=== PATIENT | male | born 1965 | race Hispanic/Latino ===

== ENCOUNTER 2017-09-17 23:56 | Inpatient (IN) | payer SELFPAY ==
[2017-09-18] MEDS ORDERED: ASPIRIN PO ONE (00:15)
[2017-09-18] MEDS ORDERED: NITRO-BID 2% TP ONE (00:30)
--- NOTE | 2017-09-18 00:31 | Emergency Department Report ---
ED Chest Pain HPI - General Chief Complaint: Chest Pain Stated Complaint: CHEST PAIN Time Seen by Provider: 09/18/17 00:28 Source: patient Mode of arrival: Ambulatory Limitations: No Limitations - History of Present Illness MD Complaint: chest pain -: This evening Onset: during rest Pain Location: substernal, left chest Pain Radiation: LUE, neck, jaw/teeth Severity scale (0 -10): 9 Quality: heaviness, pressure Consistency: constant Improves With: nitroglycerin Worsens With: nothing re: diaphoresis. denies: nausea, vomting, dyspnea Other Symptoms: denies: cough Treatments Prior to Arrival: aspirin, nitroglycerin Aspirin use within the Past 7 Days: (1) Yes - Related Data On Oral Contraceptives: No Home Medications Medication Instructions Recorded Confirmed Last Taken Aspirin 325 mg PO DAILY 09/18/17 09/18/17 09/17/17 21:35 975mg Nitroglycerin 0.4 mg SL DAILY PRN 09/18/17 09/18/17 09/17/17 21:30 0.4 MG Nitroglycerin [Nitroglycerin Patch] 1 each TD DAILY 09/18/17 09/18/17 09/17/17 Allergies Allergy/AdvReac Type Severity Reaction Status Date / Time No Known Allergies Allergy Verified 09/18/17 00:14 Heart Score - HEART Score History: Highly suspicious EKG: Significant ST-depression Age: 45-65 Risk factors: > 3 risk factors or hx of atherosclerotic disease Troponin: 1-3x normal limit HEART Score: 8 - Critical Actions Critical Actions: >7 pts:50-65% risk of adverse cardiac event. Early invasive measures ED Review of Systems ROS: Stated complaint: CHEST PAIN Other details as noted in HPI Comment: All other systems reviewed and negative Constitutional: denies: chills, fever Eyes: denies: eye pain, vision change ENT: denies: ear pain, dental pain Respiratory: denies: cough, shortness of breath Cardiovascular: chest pain. denies: palpitations Endocrine: no symptoms reported Gastrointestinal: denies: abdominal pain, nausea, vomiting, diarrhea Genitourinary: denies: urgency, dysuria, frequency Musculoskeletal: denies: back pain, joint swelling Skin: denies: rash, change in color Neurological: denies: headache, weakness, numbness, paresthesias Psychiatric: denies: anxiety, depression Hematological/Lymphatic: denies: easy bleeding, easy bruising ED Past Medical Hx - Past Medical History Hx Heart Attack/AMI: Yes Additional medical history: 3 stints in 2013 - Surgical History Additional Surgical History: stint placement - Social History Smoking Status: Never Smoker Substance Use Type: None - Medications Home Medications: Home Medications Medication Instructions Recorded Confirmed Last Taken Type Aspirin 325 mg PO DAILY 09/18/17 09/18/17 09/17/17 21:35 History 975mg Nitroglycerin 0.4 mg SL DAILY PRN 09/18/17 09/18/17 09/17/17 21:30 History 0.4 MG Nitroglycerin [Nitroglycerin Patch] 1 each TD DAILY 09/18/17 09/18/17 09/17/17 History ED Physical Exam - General Limitations: No Limitations General appearance: alert, in distress - Head Head exam: Present: atraumatic, normocephalic, normal inspection - Eye Eye exam: Present: normal appearance, PERRL, EOMI Pupils: Present: normal accommodation - ENT ENT exam: Present: normal exam, normal orophraynx, mucous membranes moist - Neck Neck exam: Present: normal inspection. Absent: tenderness, full ROM - Respiratory Respiratory exam: Present: normal lung sounds bilaterally. Absent: respiratory distress, wheezes, rhonchi - Cardiovascular Cardiovascular Exam: Present: regular rate, normal rhythm, normal heart sounds - GI/Abdominal GI/Abdominal exam: Present: soft, distended, normal bowel sounds. Absent: tenderness, guarding, rebound - Extremities Exam Extremities exam: Present: normal inspection, full ROM, normal capillary refill - Back Exam Back exam: Present: normal inspection, full ROM. Absent: tenderness - Neurological Exam Neurological exam: Present: alert, oriented X3, CN II-XII intact - Psychiatric Psychiatric exam: Present: normal affect, normal mood - Skin Skin exam: Present: warm, dry, intact, normal color. Absent: rash ED Course Vital Signs 09/18/17 09/18/17 09/18/17 00:11 00:45 00:49 Temperature 97.7 F Pulse Rate 80 82 82 Respiratory 20 Rate Blood Pressure 161/99 150/96 O2 Sat by Pulse 97 98 Oximetry - Reevaluation(s) Reevaluation #1: 09/18/17 03:14 I consulted the warehouse production worker director environmental Dr. William. He recommended starting the patient on heparin drip and admitting the patient to the hospitalist. Patient care was discussed with the hospitalist on-call for Dr. Charlene Rowell. She will admit the patient for further evaluation and management. SINA score - Sina Score Age > 65: (0) No Aspirin use within the Past 7 Days: (1) Yes 3 or more CAD Risk Factors: (1) Yes 2 or more Angina events in past 24 hrs: (1) Yes Known CAD with more than 50% Stenosis: (1) Yes Elevated Cardiac Markers: (1) Yes ST Deviation Greater than 0.5mm: (0) No SINA Score: 5 ED Medical Decision Making - Lab Data Result diagrams: 09/18/17 03:04 09/18/17 00:21 - EKG Data -: EKG Interpreted by Me EKG shows normal: sinus rhythm Rate: normal (85) - EKG Data When compared to previous EKG there are: previous EKG unavailable Interpretation: nonspecific ST-T wave elian, other (Q waves in the inferior leads. No STEMI.) Critical Care Time: Yes Critical care time in (mins) excluding proc time.: 50 Critical care attestation.: If time is entered above; I have spent that time in minutes in the direct care of this critically ill patient, excluding procedure time. ED Disposition Clinical Impression: NSTEMI (non-ST elevated myocardial infarction), Chest pain due to coronary artery disease Disposition: OP ADMIT IP TO THIS HOSP Is pt being admited?: Yes Does the pt Need Aspirin: Yes Condition: Stable Instructions: Chest Pain (ED) Referrals: PRIMARY CARE, [Primary Care Provider] - 3-5 Days Time of Disposition: 03:10
[2017-09-18 00:35] LABS: Basophils # (Auto) 0.1 K/mm3 (0.0-0.1); Basophils % (Auto) 0.5 % (0.0-1.8); Eosinophils # (Auto) 0.4 K/mm3 (0.0-0.4); Eosinophils % (Auto) 3.2 % (0.0-4.3); Hematocrit 45.3 % (35.5-45.6); Hemoglobin 14.8 gm/dl (11.8-15.2); Lymphocytes % (Auto) 31.1 % (13.4-35.0); Mean Corpuscular HGB Conc 33 % (32-34); Mean Corpuscular Hemoglobin 29 pg (28-32); Mean Corpuscular Volume 88 fl (84-94); Monocytes # (Auto) 1.2 K/mm3 (0.0-0.8); Monocytes % (Auto) 9.3 % (0.0-7.3); Platelet Count 300 K/mm3 (140-440); Red Blood Count 5.18 M/mm3 (3.65-5.03)
[2017-09-18 00:48] LABS: BUN/Creatinine Ratio 14; Blood Urea Nitrogen 17 mg/dL (9-20); Calcium 9.5 mg/dL (8.4-10.2); Hemolysis Index 7
[2017-09-18 01:18] LABS: HDL Cholesterol 30 mg/dL (40-59); LDL Cholesterol,Direct 208 mg/dL (50-130)
[2017-09-18 01:29] LABS: INR 0.97 (0.87-1.13)
[2017-09-18 01:38] LABS: Alanine Aminotransferase 21 units/L (7-56); Albumin 4.3 g/dL (3.9-5)
[2017-09-18 01:45] LABS: Partial Thromboplastin Time 29.5 Sec. (24.2-36.6)
[2017-09-18 01:48] LABS: Bilirubin,Direct < 0.2 mg/dL (0-0.2)
[2017-09-18 03:32] LABS: Hematocrit 42.2 % (35.5-45.6); Hemoglobin 14.3 gm/dl (11.8-15.2)
[2017-09-18 03:41] LABS: INR 0.96 (0.87-1.13)
[2017-09-18 03:42] LABS: Partial Thromboplastin Time 28.9 Sec. (24.2-36.6)
[2017-09-18] MEDS: HEPARIN/ 0.45% NACL-25,000 UNIT/500 ML 25,000 UNIT/500 ML BAG IV SCH (04:03)
[2017-09-18] MEDS ORDERED: MORPHINE IV ONE ×2 (04:24→04:46)
[2017-09-18] MEDS ORDERED: ZOFRAN IV PRN (05:08)
[2017-09-18] MEDS ORDERED: SODIUM CHLORIDE FLUSH SYRINGE 10 ML IV PRN (05:08)
--- NOTE | 2017-09-18 05:11 | History and Physical Report ---
History of Present Illness Date of examination: 09/18/17 History of present illness: 52-year-old man with a history of CAD comes to the emergency room with complaints of chest pain that started tonight. Pain is in the left epigastric area which he describes as someone standing on his chest, constant, radiating to the left shoulder, jaw, neck,, intensity 7/10. He took 3 sublingual nitroglycerin at home without any relief, when he came to the emergency room he was given a nitroglycerin paste which resolve his pain. Complains of nausea, shortness of breath, no diaphoresis, palpitations. Review of systems Constitutional: no weight loss, chills Ears, eyes, nose, mouth and throat: no nasal congestion, no nasal discharge, no sinus pressure, no vision change, no red eye. Neck: No neck pain or rigidity. Cardiovascular: no palpitations Respiratory: No cough Gastrointestinal: no abdominal pain, hematochezia Genitourinary : no dysuria, frequency , no hematuria Musculoskeletal: no joint swelling or muscle ache Integumentary: no rash, no pruritis Neurological: no parathesias, no numbness, no focal weakness Endocrine: no cold or heat intolerance, no polyuria or polydipsia Hematologic/Lymphatic: no easy bruising, no easy bleeding, no gland swelling Allergic/Immunologic: no urticaria, no angioedema. PAST MEDICAL HISTORY: CAD PAST SURGICAL HISTORY: none SOCIAL HISTORY: Denies alcohol, tobacco, drugs FAMILY HISTORY: Hypertension Medications and Allergies Allergies Allergy/AdvReac Type Severity Reaction Status Date / Time No Known Allergies Allergy Verified 09/18/17 00:14 Home Medications Medication Instructions Recorded Confirmed Last Taken Type Aspirin 325 mg PO DAILY 09/18/17 09/18/17 09/17/17 21:35 History 975mg Nitroglycerin 0.4 mg SL DAILY PRN 09/18/17 09/18/17 09/17/17 21:30 History 0.4 MG Nitroglycerin [Nitroglycerin Patch] 1 each TD DAILY 09/18/17 09/18/17 09/17/17 History Active Meds: Active Medications Aspirin (Aspirin) 325 mg PO DAILY [facility] Heparin Sodium/Sodium Chloride (Heparin/ 0.45% Nacl-25,000 Unit/500 Ml) 25,000 unit in 500 mls @ 20 mls/hr IV TITRATE ROSITA; Protocol Last Admin: 09/18/17 04:03 Dose: 1,000 units/hr, 20 mls/hr Exam - Constitutional Vitals: Temp Pulse Resp BP Pulse Ox 97.7 F 82 20 150/96 98 09/18/17 00:11 09/18/17 00:49 09/18/17 00:45 09/18/17 00:49 09/18/17 00:45 Results - Labs CBC & Chem 7: 09/18/17 03:04 09/18/17 00:21 Labs: Abnormal lab results 09/18/17 09/18/17 09/18/17 Range/Units 00:21 00:21 03:04 WBC 12.7 H (4.5-11.0) K/mm3 RBC 5.18 H (3.65-5.03) M/mm3 Patrick % (Auto) 9.3 H (0.0-7.3) % Patrick # 1.2 H (0.0-0.8) K/mm3 Glucose 121 H (75-100) mg/dL Troponin T 0.038 H 0.137 H* D (0.00-0.029) ng/mL Triglycerides 358 H (2-149) mg/dL Cholesterol 279 H (50-199) mg/dL LDL Cholesterol Direct 208 H (50-130) mg/dL HDL Cholesterol 30 L (40-59) mg/dL - Imaging and Cardiology EKG: image reviewed Chest x-ray: image reviewed Assessment and Plan Assessment NSTMI CAD Plan Admit to medicine Check cardiac enzymes, consult cardiology Continue heparin drip, start aspirin, coreg, lisinopril Continue appropriate outpatient medications DVT prophylaxis
[2017-09-18] MEDS ORDERED: TYLENOL ONE (07:03)
[2017-09-18] MEDS: TYLENOL PO PRN ×2 (07:13→17:46)
[2017-09-18] MEDS: COREG PO SCH ×4 (10:34→22:00)
[2017-09-18] MEDS: ASPIRIN PO SCH (10:34)
[2017-09-18] MEDS: ZESTRIL PO SCH (10:35)
[2017-09-18] MEDS: MORPHINE IV PRN (10:36)
[2017-09-18] MEDS: SODIUM CHLORIDE FLUSH SYRINGE 10 ML IV SCH ×2 (10:37→22:50)
--- NOTE | 2017-09-18 11:53 | Progress Note ---
Assessment and Plan Assessment and plan: NSTEMI. Continue heparin drip, Coreg, aspirin and lisinopril. Cardiology consultation pending. Follow-up echocardiogram. Chest pain. As above. Coronary artery disease. Additional 32 minutes spent evaluating the patient after admission History Interval history: No new issues overnight. Hospitalist Physical - Constitutional Vitals: Temp Pulse Resp BP Pulse Ox 97.9 F 78 11 L 119/79 98 09/18/17 09:50 09/18/17 10:35 09/18/17 09:50 09/18/17 10:35 09/18/17 09:50 General appearance: Present: no acute distress, well-nourished - EENT Eyes: Present: PERRL, EOM intact ENT: hearing intact, clear oral mucosa, dentition normal - Neck Neck: Present: supple, normal ROM - Respiratory Respiratory effort: normal Respiratory: bilateral: CTA - Cardiovascular Rhythm: regular Heart Sounds: Present: S1 & S2. Absent: gallop, rub - Extremities Extremities: no ischemia, No edema, Full ROM - Abdominal General gastrointestinal: soft, non-tender, non-distended, normal bowel sounds - Integumentary Integumentary: Present: clear, warm, dry - Neurologic Neurologic: CNII-XII intact, moves all extremities Results - Labs CBC & Chem 7: 09/18/17 03:04 09/18/17 00:21 Labs: Laboratory Last Values WBC 12.7 K/mm3 (4.5-11.0) H 09/18/17 00:21 RBC 5.18 M/mm3 (3.65-5.03) H 09/18/17 00:21 Hgb 14.3 gm/dl (11.8-15.2) 09/18/17 03:04 Hct 42.2 % (35.5-45.6) 09/18/17 03:04 MCV 88 fl (84-94) 09/18/17 00:21 MCH 29 pg (28-32) 09/18/17 00:21 MCHC 33 % (32-34) 09/18/17 00:21 RDW 15.0 % (13.2-15.2) 09/18/17 00:21 Plt Count 268 K/mm3 (140-440) 09/18/17 03:04 Lymph % (Auto) 31.1 % (13.4-35.0) 09/18/17 00:21 [place] % (Auto) 9.3 % (0.0-7.3) H 09/18/17 00:21 Eos % (Auto) 3.2 % (0.0-4.3) 09/18/17 00:21 Baso % (Auto) 0.5 % (0.0-1.8) 09/18/17 00:21 Lymph # 4.0 K/mm3 (1.2-5.4) 09/18/17 00:21 [place] # 1.2 K/mm3 (0.0-0.8) H 09/18/17 00:21 Eos # 0.4 K/mm3 (0.0-0.4) 09/18/17 00:21 Baso # 0.1 K/mm3 (0.0-0.1) 09/18/17 00:21 Seg Neutrophils % 55.9 % (40.0-70.0) 09/18/17 00: Seg Neutrophils # 7.1 K/mm3 (1.8-7.7) 09/18/17 00:21 PT 13.3 Sec. (12.2-14.9) 09/18/17 03:04 INR 0.96 (0.87-1.13) 09/18/17 03:04 APTT 28.9 Sec. (24.2-36.6) 09/18/17 03:04 Heparin Anti-Xa Level < 0.10 U.I./ml (0.3-0.7) L 09/18/17 09:47 Sodium 139 mmol/L (137-145) 09/18/17 00:21 Potassium 4.3 mmol/L (3.6-5.0) 09/18/17 00:21 Chloride 101.2 mmol/L (98-107) 09/18/17 00:21 Carbon Dioxide 25 mmol/L (22-30) 09/18/17 00:21 Anion Gap 17 mmol/L 09/18/17 00:21 BUN 17 mg/dL (9-20) 09/18/17 00:21 Creatinine 1.2 mg/dL (0.8-1.5) 09/18/17 00:21 Estimated GFR > 60 ml/min 09/18/17 00:21 BUN/Creatinine Ratio 14 % 09/18/17 00:21 Glucose 121 mg/dL (75-100) H 09/18/17 00:21 Calcium 9.5 mg/dL (8.4-10.2) 09/18/17 00:21 Total Bilirubin 0.20 mg/dL (0.1-1.2) 09/18/17 00:46 Direct Bilirubin < 0.2 mg/dL (0-0.2) 09/18/17 00:46 Indirect Bilirubin 0.0 mg/dL 09/18/17 00:46 AST 17 units/L (5-40) 09/18/17 00:46 ALT 21 units/L (7-56) 09/18/17 00:46 Alkaline Phosphatase 95 units/L (35-129) 09/18/17 00:46 Total Creatine Kinase 59 units/L (55-170) 09/18/17 00:46 Troponin T 0.195 ng/mL (0.00-0.029) H* D 09/18/17 06:35 NT-Pro-B Natriuret Pep 156.1 pg/mL (0-900) 09/18/17 00:46 Total Protein 7.7 g/dL (6.3-8.2) 09/18/17 00:46 Albumin 4.3 g/dL (3.9-5) 09/18/17 00:46 Albumin/Globulin Ratio 1.3 % 09/18/17 00:46 Triglycerides 358 mg/dL (2-149) H 09/18/17 00:21 Cholesterol 279 mg/dL (50-199) H 09/18/17 00:21 LDL Cholesterol Direct 208 mg/dL (50-130) H 09/18/17 00:21 HDL Cholesterol 30 mg/dL (40-59) L 09/18/17 00:21 Cholesterol/HDL Ratio 9.30 % 09/18/17 00:21
--- NOTE | 2017-09-18 15:30 | Consultation ---
History of Present Illness Consult date: 09/18/17 Consult reason: chest pain History of present illness: Patient's a 52-year-old man with a history of coronary artery disease, prior coronary stenting more than 5 years ago. Since then, he has not maintained consistent cardiac follow-up. He states that due to lack of insurance he has been noncompliant with medical therapy and cardiac patient follow-up. He presents to the hospital at this time with chest pain which he describes as substernal chest and neck pain, radiating to his left arm. He obtained some relief with nitroglycerin paste administered in the emergency room. EKG was normal sinus rhythm, left axis deviation, old inferior myocardial infarction and incomplete right bundle branch block. Nose no acute ischemia or infarction on EKG. There was a mild isolated rising troponin of 0.13. While contemplating possible noninvasive cardiac stress test assessment, the patient reported that he had mild recurrence of his symptoms, prompting a recommendation for consideration of invasive cardiac evaluation. Currently on bedrest, he looks and feels better, no further chest pain. Past History Past Medical History: CAD Past Surgical History: PTCA Medications and Allergies Allergies Allergy/AdvReac Type Severity Reaction Status Date / Time No Known Allergies Allergy Verified 09/18/17 00:14 Home Medications Medication Instructions Recorded Confirmed Last Taken Type Aspirin 325 mg PO DAILY 09/18/17 09/18/17 09/17/17 21:35 History 975mg Nitroglycerin 0.4 mg SL DAILY PRN 09/18/17 09/18/17 09/17/17 21:30 History 0.4 MG Nitroglycerin [Nitroglycerin Patch] 1 each TD DAILY 09/18/17 09/18/17 09/17/17 History Active Meds: Active Medications Acetaminophen (Tylenol) 650 mg PO Q4H PRN PRN Reason: Pain MILD(1-3)/Fever >100.5/MURILLO Last Admin: 09/18/17 07:13 Dose: 650 mg Aspirin (Aspirin) 325 mg PO DAILY [facility] Last Admin: 09/18/17 10:34 Dose: 325 mg Carvedilol (Coreg) 3.125 mg PO BID [facility] Last Admin: 09/18/17 10:34 Dose: 3.125 mg Heparin Sodium/Sodium Chloride (Heparin/ 0.45% Nacl-25,000 Unit/500 Ml) 25,000 unit in 500 mls @ 20 mls/hr IV TITRATE ROSITA; Protocol Last Titration: 09/18/17 10:43 Dose: 1,250 units/hr, 25 mls/hr Lisinopril (Zestril) 2.5 mg PO QDAY ROSITA Last Admin: 09/18/17 10:35 Dose: 2.5 mg Morphine Sulfate (Morphine) 2 mg IV Q4H PRN PRN Reason: Pain, Moderate (4-6) Last Admin: 09/18/17 10:36 Dose: 2 mg Ondansetron HCl (Zofran) 4 mg IV Q8H PRN PRN Reason: Nausea And Vomiting Last Admin: 09/18/17 10:33 Dose: 4 mg Sodium Chloride (Sodium Chloride Flush Syringe 10 Ml) 10 ml IV BID ROSITA Last Admin: 09/18/17 10:37 Dose: 10 ml Sodium Chloride (Sodium Chloride Flush Syringe 10 Ml) 10 ml IV PRN PRN PRN Reason: LINE FLUSH Review of Systems Cardiovascular: chest pain, shortness of breath, no orthopnea, no palpitations, no rapid/irregular heart beat, no edema, no syncope, no lightheadedness Physical Examination Vital Signs Temp Pulse BP Pulse Ox 97.7 F 80 161/99 97 09/18/17 00:11 09/18/17 00:11 09/18/17 00:11 09/18/17 00:11 General appearance: no acute distress, obese HEENT: Positive: PERRL Neck: Positive: neck supple Cardiac: Positive: Reg Rate and Rhythm Lungs: Positive: Decreased Breath Sounds Neuro: Positive: Grossly Intact Abdomen: Positive: Soft Male genitourinary: Positive: deferred Skin: Positive: Clear Extremities: Absent: edema Results 09/18/17 03:04 09/18/17 00:21 Cardiac Enzymes 09/18/17 Range/Units 00:46 AST 17 (5-40) units/L Coagulation 09/18/17 09/18/17 Range/Units 00:46 03:04 PT 13.4 13.3 (12.2-14.9) Sec. INR 0.97 0.96 (0.87-1.13) APTT 29.5 28.9 (24.2-36.6) Sec. Lipids 09/18/17 Range/Units 00:21 Triglycerides 358 H (2-149) mg/dL Cholesterol 279 H (50-199) mg/dL HDL Cholesterol 30 L (40-59) mg/dL Cholesterol/HDL Ratio 9.30 % CBC 09/18/17 09/18/17 Range/Units 00:21 03:04 WBC 12.7 H (4.5-11.0) K/mm3 RBC 5.18 H (3.65-5.03) M/mm3 Hgb 14.8 14.3 (11.8-15.2) gm/dl Hct 45.3 42.2 (35.5-45.6) % Plt Count 300 268 (140-440) K/mm3 Lymph # 4.0 (1.2-5.4) K/mm3 [place] # 1.2 H (0.0-0.8) K/mm3 Eos # 0.4 (0.0-0.4) K/mm3 Baso # 0.1 (0.0-0.1) K/mm3 Comprehensive Metabolic Panel 09/18/17 09/18/17 Range/Units 00:21 00:46 Sodium 139 (137-145) mmol/L Potassium 4.3 (3.6-5.0) mmol/L Chloride 101.2 (98-107) mmol/L Carbon Dioxide 25 (22-30) mmol/L BUN 17 (9-20) mg/dL Creatinine 1.2 (0.8-1.5) mg/dL Glucose 121 H (75-100) mg/dL Calcium 9.5 (8.4-10.2) mg/dL Direct Bilirubin < 0.2 (0-0.2) mg/dL Indirect Bilirubin 0.0 mg/dL AST 17 (5-40) units/L ALT 21 (7-56) units/L Alkaline Phosphatase 95 (35-129) units/L Total Protein 7.7 (6.3-8.2) g/dL Albumin 4.3 (3.9-5) g/dL EKG interpretations - Telemetry EKG Rhythm: Sinus Rhythm Assessment and Plan - Patient Problems (1) Unstable angina Current Visit: Yes Status: Acute Plan to address problem: Patient with a history of coronary artery disease and previous coronary stenting , with very poor outpatient follow-up, presents with recurrent chest pain. His symptoms are suspicious for unstable angina. We will proceed with diagnostic cardiac catheterization in the morning. Risks and benefits have been discussed with patient and his and he consents to proceed.
[2017-09-19] MEDS: HEPARIN/ 0.45% NACL-25,000 UNIT/500 ML 25,000 UNIT/500 ML BAG IV SCH (01:25)
[2017-09-19 05:52] LABS: Basophils # (Auto) 0.1 K/mm3 (0.0-0.1); Basophils % (Auto) 0.6 % (0.0-1.8); Eosinophils # (Auto) 0.3 K/mm3 (0.0-0.4); Eosinophils % (Auto) 3.4 % (0.0-4.3); Hematocrit 41.8 % (35.5-45.6); Hemoglobin 13.8 gm/dl (11.8-15.2); Lymphocytes % (Auto) 29.7 % (13.4-35.0); Mean Corpuscular HGB Conc 33 % (32-34); Mean Corpuscular Hemoglobin 29 pg (28-32); Mean Corpuscular Volume 87 fl (84-94); Monocytes # (Auto) 0.8 K/mm3 (0.0-0.8); Monocytes % (Auto) 7.7 % (0.0-7.3); Platelet Count 256 K/mm3 (140-440); Red Blood Count 4.79 M/mm3 (3.65-5.03); Red Cell Distribution Width 15.1 % (13.2-15.2)
[2017-09-19 05:56] LABS: INR 0.98 (0.87-1.13)
[2017-09-19 05:57] LABS: Partial Thromboplastin Time 44.5 Sec. (24.2-36.6)
[2017-09-19 06:01] LABS: BUN/Creatinine Ratio 12; Blood Urea Nitrogen 13 mg/dL (9-20); Hemolysis Index 11
[2017-09-19] MEDS ORDERED: ASPIRIN ONE (08:09)
[2017-09-19] MEDS: ASPIRIN PO SCH ×2 (08:12→13:32)
[2017-09-19] MEDS: SUBLIMAZE ONE ×2 (09:00→09:33)
[2017-09-19] MEDS: CALAN ONE ×2 (09:00→09:35)
[2017-09-19] MEDS ORDERED: NACL 0.9% 500 ML 500 ML IV SCH (09:00)
[2017-09-19] MEDS: VERSED ONE ×2 (09:00→09:33)
[2017-09-19] MEDS: XYLOCAINE 2% INFILTRATI ONE ×2 (09:00→09:35)
[2017-09-19] MEDS: HEPARIN 10,000 UNITS/10 ML ONE ×2 (09:02→09:35)
[2017-09-19] MEDS: HEPARIN/NS 5000 UNIT/500ML(CATH LAB) 1,000 ML IR ONE ×2 (09:03→09:30)
[2017-09-19] MEDS: NITROGLYCERIN SYRINGE 3 ML ONE ×2 (09:04→09:35)
[2017-09-19] MEDS: NACL 0.9% 500 ML 500 ML ONE ×2 (09:04→09:30)
--- NOTE | 2017-09-19 10:22 | Progress Note ---
Assessment and Plan NSTEMI Coronary artery disease Severe triple vessel disease 70% proximal Cx, 100% OM3 and 100% PLOM, distal vessels filling via left to left and right to left collaterals 90% mid LAD, 80% distal LAD, 80% D1 and 90% D2 60% distal RCA bifurcation and 90% PDA lesion LVEF 40% Ischemic cardiomyopathy Hyperlipidemia LDL 208 and TG 358 Type II DM Recommendations: CABG Recommend transfer to tertiary care facility Family undecided which facility they want to go to or if they want to pursue CABG Resume IV heparin at 2 pm today Subjective Date of service: 09/19/17 Principal diagnosis: NSTEMI Interval history: Patient underwent a cardiac cath this morning without complications Objective Vital Signs Temp Pulse Resp BP BP Pulse Ox 09/19/17 03:56 97.7 F 80 18 125/81 90 09/18/17 23:54 97.8 F 85 18 139/95 95 09/18/17 23:00 80 09/18/17 20:44 97.8 F 78 15 115/78 93 09/18/17 17:40 83 134/96 09/18/17 12:25 97.8 F 80 20 135/80 09/18/17 10:35 78 119/79 09/18/17 10:34 78 119/79 - Physical Examination HEENT: Positive: PERRL Neck: Positive: neck supple Cardiac: Positive: Reg Rate and Rhythm Lungs: Positive: Normal Exam Neuro: Positive: Grossly Intact Abdomen: Positive: Soft Skin: Positive: Clear Extremities: Absent: edema - Labs and Meds Coagulation 09/19/17 Range/Units 04:43 PT 13.5 (12.2-14.9) Sec. INR 0.98 (0.87-1.13) APTT 44.5 H (24.2-36.6) Sec. CBC 09/19/17 Range/Units 04:43 WBC 10.3 (4.5-11.0) K/mm3 RBC 4.79 (3.65-5.03) M/mm3 Hgb 13.8 (11.8-15.2) gm/dl Hct 41.8 (35.5-45.6) % Plt Count 256 (140-440) K/mm3 Lymph # 3.0 (1.2-5.4) K/mm3 [place] # 0.8 (0.0-0.8) K/mm3 Eos # 0.3 (0.0-0.4) K/mm3 Baso # 0.1 (0.0-0.1) K/mm3 Comprehensive Metabolic Panel 09/19/17 Range/Units 04:43 Sodium 136 L (137-145) mmol/L Potassium 4.6 (3.6-5.0) mmol/L Chloride 98.9 (98-107) mmol/L Carbon Dioxide 28 (22-30) mmol/L BUN 13 (9-20) mg/dL Creatinine 1.1 (0.8-1.5) mg/dL Glucose 105 H (75-100) mg/dL Calcium 9.0 (8.4-10.2) mg/dL - Imaging and Cardiology EKG: image reviewed
--- NOTE | 2017-09-19 11:02 | Progress Note ---
Assessment and Plan Assessment and plan: NSTEMI. Continue heparin drip, Coreg, aspirin and lisinopril. Cardiology following. Patient underwent cardiac catheterization which revealed severe triple vessel disease. 70% proximal Cx, 100% OM3 and 100% PLOM, distal vessels filling via left to left and right to left collaterals, 90% mid LAD, 80% distal LAD, 80% D1 and 90% D2, 60% distal RCA bifurcation and 90% PDA lesion, LVEF 40% . Cardiology recommends transfer to tertiary facility. Await family decision. Ischemic cardiomyopathy. Coronary artery disease. As above Hyperlipidemia. Continue Lipitor 40 mg at bedtime. Diabetes mellitus type 2. Continue accuchecks and sliding scale insulin. History Interval history: No new issues overnight. Hospitalist Physical - Constitutional Vitals: Temp Pulse Resp BP Pulse Ox 97.7 F 80 18 125/81 90 09/19/17 03:56 09/19/17 03:56 09/19/17 03:56 09/19/17 03:56 09/19/17 03:56 General appearance: Present: no acute distress, obese - EENT Eyes: Present: PERRL, EOM intact ENT: hearing intact, clear oral mucosa, dentition normal - Neck Neck: Present: supple, normal ROM - Respiratory Respiratory effort: normal Respiratory: bilateral: CTA - Cardiovascular Rhythm: regular Heart Sounds: Present: S1 & S2. Absent: gallop, rub - Extremities Extremities: no ischemia, No edema, Full ROM - Abdominal General gastrointestinal: soft, non-tender, non-distended, normal bowel sounds - Integumentary Integumentary: Present: clear, warm, dry - Neurologic Neurologic: CNII-XII intact, moves all extremities Results - Labs CBC & Chem 7: 09/19/17 04:43 09/19/17 04:43 Labs: Laboratory Last Values WBC 10.3 K/mm3 (4.5-11.0) 09/19/17 04:43 RBC 4.79 M/mm3 (3.65-5.03) 09/19/17 04:43 Hgb 13.8 gm/dl (11.8-15.2) 09/19/17 04:43 Hct 41.8 % (35.5-45.6) 09/19/17 04:43 MCV 87 fl (84-94) 09/19/17 04:43 MCH 29 pg (28-32) 09/19/17 04:43 MCHC 33 % (32-34) 09/19/17 04:43 RDW 15.1 % (13.2-15.2) 09/19/17 04:43 Plt Count 256 K/mm3 (140-440) 09/19/17 04:43 Lymph % (Auto) 29.7 % (13.4-35.0) 09/19/17 04:43 [place] % (Auto) 7.7 % (0.0-7.3) H 09/19/17 04:43 Eos % (Auto) 3.4 % (0.0-4.3) 09/19/17 04:43 Baso % (Auto) 0.6 % (0.0-1.8) 09/19/17 04:43 Lymph # 3.0 K/mm3 (1.2-5.4) 09/19/17 04:43 [place] # 0.8 K/mm3 (0.0-0.8) 09/19/17 04:43 Eos # 0.3 K/mm3 (0.0-0.4) 09/19/17 04:43 Baso # 0.1 K/mm3 (0.0-0.1) 09/19/17 04:43 Seg Neutrophils % 58.6 % (40.0-70.0) 09/19/17 04:43 Seg Neutrophils # 6.0 K/mm3 (1.8-7.7) 09/19/17 04:43 PT 13.5 Sec. (12.2-14.9) 09/19/17 04:43 INR 0.98 (0.87-1.13) 09/19/17 04:43 APTT 44.5 Sec. (24.2-36.6) H 09/19/17 04:43 Heparin Anti-Xa Level 0.18 U.I./ml (0.3-0.7) L 09/18/17 16:55 Sodium 136 mmol/L (137-145) L 09/19/17 04:43 Potassium 4.6 mmol/L (3.6-5.0) 09/19/17 04:43 Chloride 98.9 mmol/L (98-107) 09/19/17 04:43 Carbon Dioxide 28 mmol/L (22-30) 09/19/17 04:43 Anion Gap 14 mmol/L 09/19/17 04:43 BUN 13 mg/dL (9-20) 09/19/17 04:43 Creatinine 1.1 mg/dL (0.8-1.5) 09/19/17 04:43 Estimated GFR > 60 ml/min 09/19/17 04:43 BUN/Creatinine Ratio 12 % 09/19/17 04:43 Glucose 105 mg/dL (75-100) H 09/19/17 04:43 POC Glucose 95 (70-105) 09/19/17 06:37 Calcium 9.0 mg/dL (8.4-10.2) 09/19/17 04:43 Total Bilirubin 0.20 mg/dL (0.1-1.2) 09/18/17 00:46 Direct Bilirubin < 0.2 mg/dL (0-0.2) 09/18/17 00:46 Indirect Bilirubin 0.0 mg/dL 09/18/17 00:46 AST 17 units/L (5-40) 09/18/17 00:46 ALT 21 units/L (7-56) 09/18/17 00:46 Alkaline Phosphatase 95 units/L (35-129) 09/18/17 00:46 Total Creatine Kinase 59 units/L (55-170) 09/18/17 00:46 Troponin T 0.195 ng/mL (0.00-0.029) H* D 09/18/17 06:35 NT-Pro-B Natriuret Pep 156.1 pg/mL (0-900) 09/18/17 00:46 Total Protein 7.7 g/dL (6.3-8.2) 09/18/17 00:46 Albumin 4.3 g/dL (3.9-5) 09/18/17 00:46 Albumin/Globulin Ratio 1.3 % 09/18/17 00:46 Triglycerides 358 mg/dL (2-149) H 09/18/17 00:21 Cholesterol 279 mg/dL (50-199) H 09/18/17 00:21 LDL Cholesterol Direct 208 mg/dL (50-130) H 09/18/17 00:21 HDL Cholesterol 30 mg/dL (40-59) L 09/18/17 00:21 Cholesterol/HDL Ratio 9.30 % 09/18/17 00:21
[2017-09-19] MEDS: COREG PO SCH ×4 (13:33→22:29)
[2017-09-19] MEDS: SODIUM CHLORIDE FLUSH SYRINGE 10 ML IV SCH ×2 (13:33→22:31)
[2017-09-19] MEDS: ZESTRIL PO SCH ×2 (13:34→13:36)
[2017-09-19] MEDS ORDERED: AMBIEN PO ONE (22:00)
[2017-09-19] MEDS: NITRO-BID 2% TP SCH (22:31)
--- NOTE | 2017-09-19 22:32 | Cardiac Catherization Report ---
LEFT HEART CATHETERIZATION INDICATION FOR PROCEDURE: Non-ST elevation myocardial infarction. ORDERING PHYSICIAN: Dr. Christopher Guevara. PROCEDURE PERFORMED: 1. Selective left and right coronary angiography. 2. Left ventriculography. DESCRIPTION OF PROCEDURE: After obtaining written consent, the patient was draped using sterile technique. A 2% lidocaine was injected into the right wrist. A 5-St Helenian vascular sheath was inserted into the right radial artery after documenting appropriate radial and ulnar blood flow. A 5-St Helenian JL3.5 catheter was used to selectively engage the left coronary artery. A 5-St Helenian JR4 catheter was used to selectively engage the right coronary artery. A 5-St Helenian JR4 catheter was used to hand inject the left ventriculogram. No complications occurred during the procedure. SPECIMEN REMOVED: None. Hemostasis was achieved at the end of the procedure using manual pressure. ESTIMATED BLOOD LOSS: Minimal. SEDATION ADMINISTERED: 1 mg of IV Versed and 50 mcg of IV fentanyl. Physician patient [id number] sedation start time is 9:33 a.m. Physician patient sedation [id number] stop time is 9:44 a.m. Total sedation time was 11 minutes. FINDINGS: HEMODYNAMICS: Aortic pressure 136/98. LV systolic pressure 136 mmHg, LVEDP 28 mmHg. There was no significant gradient noted across left ventricular outflow tract. CARDIAC STRUCTURES: There is moderate global left ventricular hypokinesis with an ejection fraction estimated at 40%. CORONARY ANATOMY: 1. This is a right dominant circulation. 2. The left main has mild luminal irregularities. 3. The left anterior descending artery has a patent stent noted in the proximal segment. There is a 90% focal stenosis of the mid LAD at the takeoff of the second diagonal artery. This is followed by a tubular diffuse 80% stenosis in the mid to distal LAD. The distal LAD is severely diffusely diseased and small in caliber. The first diagonal artery has an 80% ostial stenosis and is moderate sized caliber vessel. The second diagonal artery has a mid segment, 90% focal stenosis and then a moderate sized caliber vessel. 4. The proximal left circumflex artery has a tubular 70% stenosis. 5. OM1 and OM2 are very small in caliber. 6. There is 100% occlusion of OM3 proximally. The distal vessel is noted filling late via left to left collaterals. 7. There is also a 100% occlusion of the posterolateral obtuse marginal with distal vessel also noted to be filling via left to left collaterals. 8. The AV groove vessel is very small and severely diffusely diseased. 9. The right coronary artery is dominant vessel. The right coronary artery has a diffuse 30% stenosis, 30% disease in the proximal, mid and distal segment. There is a hazy 60% stenosis at the bifurcation of the PDA and PLVB. There is 20% diffuse disease noted in the PLVB. There is a tubular 90% stenosis noted in the PDA. This is a moderate sized caliber vessel. IMPRESSION: 1. Severe 3-vessel disease. 2. Patent proximal LAD stent. 3. 90% focal mid LAD stenosis followed by 80% tubular mid to distal LAD stenosis with the distal vessel being severely diseased and small in caliber. 4. 80% ostial D1 and 90% mid D2. 5. 70% proximal circumflex. 6. 100% ostial and proximal OM3. 7. 100% ostial and proximal PLOM. 8. 90% mid PDA with evidence of right to left collaterals. 9. The left ventricular ejection fraction is estimated at 40% with moderate global left ventricular hypokinesis. 10. LVEDP measured at 28 mmHg. RECOMMENDATIONS: The patient is recommended for coronary artery bypass grafting, given the severity and diffuse nature of his coronary artery disease. Family, however, is very reluctant in having a coronary artery bypass grafting and is requesting second opinion from an metal bonding assembler. Family will be updating us on which hospital they would like to be transferred to for a second opinion. Until then, we will continue medical therapy and IV heparin infusion. JOB# [id number] STAN/JEFFRY
[2017-09-19] MEDS ORDERED: BENADRYL PO PRN (23:19)
[2017-09-19] MEDS ORDERED: BANOPHEN ANTI-ITCH TP PRN (23:19)
[2017-09-20] MEDS: HEPARIN/ 0.45% NACL-25,000 UNIT/500 ML 25,000 UNIT/500 ML BAG IV SCH (03:06)
[2017-09-20] MEDS: NITRO-BID 2% TP SCH ×3 (07:00→18:21)
[2017-09-20 08:26] LABS: Hematocrit 42.1 % (35.5-45.6); Hemoglobin 13.9 gm/dl (11.8-15.2)
[2017-09-20] MEDS: TYLENOL PO PRN (10:57)
[2017-09-20] MEDS: COREG PO SCH (10:57)
[2017-09-20] MEDS: ASPIRIN PO SCH (10:58)
[2017-09-20] MEDS: SODIUM CHLORIDE FLUSH SYRINGE 10 ML IV SCH (10:59)
[2017-09-20] MEDS: MORPHINE IV PRN (11:23)
--- NOTE | 2017-09-20 12:03 | Progress Note ---
Assessment and Plan Assessment and plan: NSTEMI. Continue heparin drip, Coreg, aspirin and lisinopril. Cardiology following. Patient underwent cardiac catheterization which revealed severe triple vessel disease. 70% proximal Cx, 100% OM3 and 100% PLOM, distal vessels filling via left to left and right to left collaterals, 90% mid LAD, 80% distal LAD, 80% D1 and 90% D2, 60% distal RCA bifurcation and 90% PDA lesion, LVEF 40% . Cardiology recommends transfer to tertiary facility. Family wants to be transferred to Dr. Walton at [facility]. Await accepting physician to arrange transfer. Ischemic cardiomyopathy. Continue IV heparin. Cardiology following. Coronary artery disease. As above Hyperlipidemia. Continue Lipitor 40 mg at bedtime. Diabetes mellitus type 2. Continue accuchecks and sliding scale insulin. History Interval history: No new issues overnight. Hospitalist Physical - Constitutional Vitals: Temp Pulse Resp BP Pulse Ox 97.2 F L 79 22 143/88 94 09/20/17 08:08 09/20/17 10:57 09/20/17 08:08 09/20/17 10:57 09/20/17 08:08 General appearance: Present: no acute distress, obese - EENT Eyes: Present: PERRL, EOM intact ENT: hearing intact, clear oral mucosa, dentition normal - Neck Neck: Present: supple, normal ROM - Respiratory Respiratory effort: normal Respiratory: bilateral: CTA - Cardiovascular Rhythm: regular Heart Sounds: Present: S1 & S2. Absent: gallop, rub - Extremities Extremities: no ischemia, No edema, Full ROM - Abdominal General gastrointestinal: soft, non-tender, non-distended, normal bowel sounds - Integumentary Integumentary: Present: clear, warm, dry - Neurologic Neurologic: CNII-XII intact, moves all extremities Results - Labs CBC & Chem 7: 09/20/17 07:16 09/19/17 04:43 Labs: Laboratory Last Values WBC 10.3 K/mm3 (4.5-11.0) 09/19/17 04:43 RBC 4.79 M/mm3 (3.65-5.03) 09/19/17 04:43 Hgb 13.9 gm/dl (11.8-15.2) 09/20/17 07:16 Hct 42.1 % (35.5-45.6) 09/20/17 07:16 MCV 87 fl (84-94) 09/19/17 04:43 MCH 29 pg (28-32) 09/19/17 04:43 MCHC 33 % (32-34) 09/19/17 04:43 RDW 15.1 % (13.2-15.2) 09/19/17 04:43 Plt Count 248 K/mm3 (140-440) 09/20/17 07:16 Lymph % (Auto) 29.7 % (13.4-35.0) 09/19/17 04:43 Archuleta % (Auto) 7.7 % (0.0-7.3) H 09/19/17 04:43 Eos % (Auto) 3.4 % (0.0-4.3) 09/19/17 04:43 Baso % (Auto) 0.6 % (0.0-1.8) 09/19/17 04:43 Lymph # 3.0 K/mm3 (1.2-5.4) 09/19/17 04:43 Archuleta # 0.8 K/mm3 (0.0-0.8) 09/19/17 04:43 Eos # 0.3 K/mm3 (0.0-0.4) 09/19/17 04:43 Baso # 0.1 K/mm3 (0.0-0.1) 09/19/17 04:43 Seg Neutrophils % 58.6 % (40.0-70.0) 09/19/17 04:43 Seg Neutrophils # 6.0 K/mm3 (1.8-7.7) 09/19/17 04:43 PT 13.5 Sec. (12.2-14.9) 09/19/17 04:43 INR 0.98 (0.87-1.13) 09/19/17 04:43 APTT 44.5 Sec. (24.2-36.6) H 09/19/17 04:43 Heparin Anti-Xa Level 0.10 U.I./ml (0.3-0.7) L 09/20/17 07:16 Sodium 136 mmol/L (137-145) L 09/19/17 04:43 Potassium 4.6 mmol/L (3.6-5.0) 09/19/17 04:43 Chloride 98.9 mmol/L (98-107) 09/19/17 04:43 Carbon Dioxide 28 mmol/L (22-30) 09/19/17 04:43 Anion Gap 14 mmol/L 09/19/17 04:43 BUN 13 mg/dL (9-20) 09/19/17 04:43 Creatinine 1.1 mg/dL (0.8-1.5) 09/19/17 04:43 Estimated GFR > 60 ml/min 09/19/17 04:43 BUN/Creatinine Ratio 12 % 09/19/17 04:43 Glucose 105 mg/dL (75-100) H 09/19/17 04:43 POC Glucose 95 (70-105) 09/19/17 06:37 Calcium 9.0 mg/dL (8.4-10.2) 09/19/17 04:43 Total Bilirubin 0.20 mg/dL (0.1-1.2) 09/18/17 00:46 Direct Bilirubin < 0.2 mg/dL (0-0.2) 09/18/17 00:46 Indirect Bilirubin 0.0 mg/dL 09/18/17 00:46 AST 17 units/L (5-40) 09/18/17 00:46 ALT 21 units/L (7-56) 09/18/17 00:46 Alkaline Phosphatase 95 units/L (35-129) 09/18/17 00:46 Total Creatine Kinase 59 units/L (55-170) 09/18/17 00:46 Troponin T 0.195 ng/mL (0.00-0.029) H* D 09/18/17 06:35 NT-Pro-B Natriuret Pep 156.1 pg/mL (0-900) 09/18/17 00:46 Total Protein 7.7 g/dL (6.3-8.2) 09/18/17 00:46 Albumin 4.3 g/dL (3.9-5) 09/18/17 00:46 Albumin/Globulin Ratio 1.3 % 09/18/17 00:46 Triglycerides 358 mg/dL (2-149) H 09/18/17 00:21 Cholesterol 279 mg/dL (50-199) H 09/18/17 00:21 LDL Cholesterol Direct 208 mg/dL (50-130) H 09/18/17 00:21 HDL Cholesterol 30 mg/dL (40-59) L 09/18/17 00:21 Cholesterol/HDL Ratio 9.30 % 09/18/17 00:21
--- NOTE | 2017-09-20 12:20 | Progress Note ---
Assessment and Plan - Patient Problems (1) Unstable angina Current Visit: Yes Status: Acute Plan to address problem: Patient's cardiac catheterization demonstrated severe three-vessel coronary artery disease, with multiple complex coronary lesions, not amenable to percutaneous intervention. The patient is recommended for coronary artery bypass surgery, but he continues to insist repeatedly that he wants coronary stents and not bypass. We have explained in detail to him and his family that his coronary anatomy is not amenable at this time to percutaneous intervention, and the only options for management is coronary artery bypass, or conservative management with medical therapy. He wants to be transferred to [facility], for a second opinion from a top waddy who previously treated his brother. We are attempting but have so far been unsuccessful in making contact with his requested top waddy. Subjective Date of service: 09/20/17 Principal diagnosis: NSTEMI Interval history: Patient's cardiac catheterization demonstrated severe three-vessel coronary artery disease, with multiple complex coronary lesions, not amenable to percutaneous intervention. The patient is recommended for coronary artery bypass surgery, but he continues to insist repeatedly that he wants coronary stents and not bypass. We have explained in detail to him and his family that his coronary anatomy is not amenable at this time to percutaneous intervention, and the only options for management is coronary artery bypass, or conservative management with medical therapy. He wants to be transferred to [facility], for a second opinion from a top waddy who previously treated his brother. We are attempting but have so far been unsuccessful in making contact with his requested top waddy. Objective Vital Signs Temp Pulse Resp BP BP Pulse Ox 09/20/17 10:57 79 143/88 09/20/17 08:08 97.2 F L 83 22 143/88 94 09/20/17 05:36 98.4 F 81 20 128/76 95 09/20/17 00:37 98.6 F 77 20 111/52 97 09/19/17 22:29 96 H 139/89 09/19/17 22:28 139/89 09/19/17 20:40 98.4 F 86 20 128/82 95 09/19/17 20:30 95 09/19/17 19:30 84 09/19/17 19:06 97.9 F 85 18 139/89 99 09/19/17 18:47 94 09/19/17 12:38 97.9 F 86 18 167/88 96 - Physical Examination General: No Apparent Distress HEENT: Positive: PERRL Neck: Positive: neck supple Cardiac: Positive: Reg Rate and Rhythm Lungs: Positive: Decreased Breath Sounds Neuro: Positive: Grossly Intact Abdomen: Positive: Soft Skin: Positive: Clear Extremities: Absent: edema - Labs and Meds CBC 09/20/17 Range/Units 07:16 Hgb 13.9 (11.8-15.2) gm/dl Hct 42.1 (35.5-45.6) % Plt Count 248 (140-440) K/mm3 - Imaging and Cardiology EKG: image reviewed
[2017-09-20 18:16] VITALS: BP 115/73
--- NOTE | 2017-09-21 13:08 | Discharge Summary ---
Providers - Providers Date of Admission: 09/18/17 05:08 Date of discharge: 09/20/17 Attending physician: ANDRES AVENDANO 09/18/17 05:08 Consult to Physician [CONS] Routine Comment: Consulting Provider: RL JEROME Physician Instructions: Reason For Exam: anurag 09/19/17 10:05 Consult to Cardiac Rehabilitation [CONS] Routine Reason For Exam: Cardiac Rehab Evaluation Primary care physician: MODEL MAKER FIREARMS Hospitalization Condition: Stable Hospital course: Patient's a 52-year-old man with a history of coronary artery disease, prior coronary stenting more than 5 years ago. Since then, he has not maintained consistent cardiac follow-up. He stated that due to lack of insurance he has been noncompliant with medical therapy and cardiac patient follow-up. He presented to the hospital with chest pain which he described as substernal chest and neck pain, radiating to his left arm. He obtained some relief with nitroglycerin paste administered in the emergency room. EKG was normal sinus rhythm, left axis deviation, old inferior myocardial infarction and incomplete right bundle branch block. No acute ischemia or infarction on EKG. There was a mild isolated rising troponin of 0.13. The patient was admitted with diagnosis of NSTEMI. While contemplating possible noninvasive cardiac stress test assessment, the patient reported that he had mild recurrence of his symptoms, prompting a recommendation for consideration of invasive cardiac evaluation. The patient underwent cardiac catheterization which revealed severe triple vessel disease with LVEF of 40%. Please see cath note report. Patient was noted to have ischemic cardiomyopathy. Recommendations by cardiology were for transfer to tertiary care facility for CABG. Patient's cardiac catheterization demonstrated severe three-vessel coronary artery disease , with multiple complex coronary lesions, not amenable to percutaneous intervention. The patient was recommended for coronary artery bypass surgery as noted above, but he continued to insist repeatedly that he wanted coronary stents and not bypass. Radiology explained in detail to him and his family that his coronary anatomy is not amenable at this time to percutaneous intervention, and the only options for management is coronary artery bypass, or conservative management with medical therapy. He wanted to be transferred to [facility], for a second opinion from a shank stitcher who previously treated his brother. We attempted but unsuccessful in making contact with his requested shank stitcher. The patient was told that we would continue to treat medically on this hospitalization and attempt to find a shank stitcher on Friday as there was no accepting physician from that group over the weekend. Patient was initially agreeable but apparently later in the evening decided to leave AMA per nurses report. Dedicated discharge time 35 minutes. Disposition: DC- LEFT AGAINST MED ADVICE Core Measure Documentation - Palliative Care Palliative Care/ Comfort Measures: Not Applicable - Core Measures Any of the following diagnoses?: acute TX - Acute TX Discharge Requirements Aspirin at discharge: No Reason for no aspirin on DC: Patient refusal KALIN/ARB for LVSD if EF <40%: No Reason for no KALIN/ARB: Patient refusal Beta emanuel at discharge: No Reason for no beta emanuel on DC: Patient refusal Statin for LDL = or >100 mg/dl on DC: No Reason for no statin on DC: Patient refusal Acute myocardial infarction comments: Pt left AMA Exam - Constitutional Vitals: Temp Pulse Resp BP Pulse Ox 98.4 F 81 20 115/73 93 09/20/17 16:06 09/20/17 16:06 09/20/17 16:06 09/20/17 16:06 09/20/17 16:06 Plan Follow up with: FRANCESCO CALDERON MD [Primary Care Provider] - 3-5 Days Forms: AMA Form
--- NOTE | 2017-09-22 14:16 | XRay Report ---
FINAL REPORT EXAM: XR CHEST 1V AP HISTORY: chest pain TECHNIQUE: 2 views of the chest. PRIORS: None. FINDINGS: The cardiomediastinal silhouette appears normal. The lungs are hypoaerated but clear. The bones and soft tissues are unremarkable. IMPRESSION: Hypo aerated lungs. No acute findings.
== END 2017-09-20 19:40 | disposition left against medical advice (07) | DRG 282 ==
LOC: ED 23:56 → 4A 09-18 05:08
PROVIDERS: ADMIT Internal Medicine; ATTEND Hospitalist
PROC: 4A023N7 Measurement of Cardiac Sampling and Pressure, Left Heart, Percutaneous Approach (ICD-10-PCS; principal; 2017-09-19)
PROC: B2111ZZ Fluoroscopy of Multiple Coronary Arteries using Low Osmolar Contrast (ICD-10-PCS; 2017-09-19)
PROC: B2151ZZ Fluoroscopy of Left Heart using Low Osmolar Contrast (ICD-10-PCS; 2017-09-19)
DX: I21.4 Non-ST elevation (NSTEMI) myocardial infarction (principal); I25.110 Atherosclerotic heart disease of native coronary artery with unstable angina pectoris; E78.5 Hyperlipidemia, unspecified; I25.5 Ischemic cardiomyopathy; Z79.82 Long term (current) use of aspirin; Z79.899 Other long term (current) drug therapy; Z95.5 Presence of coronary angioplasty implant and graft; I25.2 Old myocardial infarction; Z82.49 Family history of ischemic heart disease and other diseases of the circulatory system
CPT/HCPCS: 36415; 71045; 80048; 80061; 80074; 82550; 82962; 83880; 84484; 85014; 85018; 85025; 85049; 85520; 85610; 85730; 93005; 93010; 93458; 94760; 96374; A9270-GY; C1894; J1644; J2250; J2270; J2405; J3010; J7040; Q9967